=== PATIENT | female | born 1975 | race Caucasian/White ===

== ENCOUNTER → 2018-01-28 | Outpatient (CLI) | payer BC ==
[~2018-01-28] MED LIST: ACET-1311 PO; IBUP-1050 PO; PRENTAB26 PO
== END | disposition home or self-care (01) ==
LOC: C.LABMFLN 15:18
PROVIDERS: ATTEND Internal Medicine Endocrinology, Diabetes & Metabolism
DX: E06.3 Autoimmune thyroiditis (principal); E03.9 Hypothyroidism, unspecified